=== PATIENT | male | born 1945 | race Caucasian/White ===

== ENCOUNTER → 2017-01-29 | Outpatient (CLI) | payer BC ==
[~2017-01-29] MED LIST: ASPIRIN E.C. 8181 MG PO; ZESTRIL 5MG5 MG PO; ZOCOR 10MG10 MG PO
== END ==
LOC: COL.RAD 08:07
DX: I71.4 Abdominal aortic aneurysm, without rupture (principal); F17.210 Nicotine dependence, cigarettes, uncomplicated

== ENCOUNTER → 2020-08-30 | Outpatient (CLI) | payer MEDICARE, BC ==
[~2020-08-30] MED LIST changes: +FARXIGA5 PO; +LASIX 40MG TABL40 MG PO; +MOVE FREE PLUS1 EACH PO; +TRELEGY ELLIPT1 EACH IH
== END ==
LOC: COL.VAS 13:44
DX: I08.0 Rheumatic disorders of both mitral and aortic valves (principal)

== ENCOUNTER 2020-11-08 12:28 | Day surgery (SDC) | payer MEDICARE, BC ==
[2020-11-08] VITALS (9 sets, daily range): BP systolic 98–116; BP diastolic 68–82; PULSE 70–101; TEMP 98.4
[~2020-11-08] VITALS: Ht 175.3 cm; Wt 102.7 kg
[~2020-11-08 12:28] MED LIST changes: -FARXIGA5 PO; -LASIX 40MG TABL40 MG PO; -MOVE FREE PLUS1 EACH PO; -TRELEGY ELLIPT1 EACH IH
[2020-11-08] MEDS ORDERED: LASIX 40MG TABL40 MG PO (12:43)
[2020-11-08] MEDS ORDERED: MOVE FREE PLUS1 EACH PO (12:44)
[2020-11-08] MEDS ORDERED: TRELEGY ELLIPT1 EACH IH (12:44)
[2020-11-08 13:15] LABS: HEMATOCRIT 51.7 % (42.0-52.0); HEMOGLOBIN 16.3 g/dl (13.5-18.0); MEAN CELL VOLUME 93 fl (80.0-100.0); MEAN CORPUSCULAR HEMOGLOBIN 29 pg (27.0-31.0); MEAN CORPUSCULAR HGB CONC 32 g/dl (33.0-37.0); MEAN PLATELET VOLUME 10.2 fl (7.4-10.4); PLATELET COUNT 159 K/mm3 (130-400); RED BLOOD COUNT 5.55 M/mm3 (4.20-5.60); REDCELL DISTRIBUTION WIDTH-CV 14.5 % (11.5-14.5)
[2020-11-08 13:20] LABS: INR 1.1 (0.8-3.0); PROTHROMBIN TIME 11.8 SECONDS (9.7-12.8)
[2020-11-08 13:22] LABS: PARTIAL THROMBOPLASTIN TIME 33.8 SECONDS (26.0-37.0)
[2020-11-08 13:23] LABS: CALCIUM 9.4 mg/dL (8.4-10.2); CREATININE, serum 0.43 (0.66-1.25); POTASSIUM 4.5 mmol/L (3.4-5.0)
--- NOTE | 2020-11-08 16:05 | NUR ---
SS MERGE DOCUMENTATION FOR MEDICATION ADMINISTRATION TIMES AND INTRA/POST PROCEDURE SEDATION ASSESSMENTS. PLAN FOR RIGHT RADIAL ARTERY AND RIGHT FEMORAL VENOUS ACCESS.
[2020-11-08] MEDS ORDERED: FARXIGA5 PO (16:31)
--- NOTE | 2020-11-08 16:45 | NUR ---
Report from Dru GROVES. Transferred from Medicine Aide by bed. Right Tband with 12 cc air CD&I, good pulses and cap refill < 3 secs. Right groin site CD&I, soft to palpation and good pedal pulses noted. VSS. bedside
--- NOTE | 2020-11-08 18:53 | NUR ---
Right Tband released of 12 cc air and dressing applied. INT discontinued intact. Groin site soft to palpation post ambulation to bathroom.
--- NOTE | 2020-11-08 19:13 | NUR ---
Discharge instructions given.. Transferred to private car by rain
== END 2020-11-08 19:13 | disposition home or self-care (01) ==
LOC: COL.CAR 12:28
PROVIDERS: Internal Medicine Cardiovascular Disease
DX: I42.9 Cardiomyopathy, unspecified (principal); I27.20 Pulmonary hypertension, unspecified; J44.9 Chronic obstructive pulmonary disease, unspecified; I50.9 Heart failure, unspecified; Z79.82 Long term (current) use of aspirin; Z79.899 Other long term (current) drug therapy; F17.210 Nicotine dependence, cigarettes, uncomplicated; Z20.822 Contact with and (suspected) exposure to COVID-19
CPT/HCPCS: C1769; C1894; J1644; J3010; Q9967

== ENCOUNTER → 2021-01-23 | Outpatient (CLI) | payer MEDICARE, BC ==
[~2021-01-23] MED LIST changes: +FARXIGA5 PO; +LASIX 40MG TABL40 MG PO; +MOVE FREE PLUS1 EACH PO; +TRELEGY ELLIPT1 EACH IH
[2021-01-23 08:06] LABS: ARTERIAL BLD GAS O2 SATURATION 94.2 % (92-100); ARTERIAL BLD GAS TCO2 CT 36.4; ARTERIAL BLOOD GAS BASE EXCESS 6.8 (-2-2); ARTERIAL BLOOD GAS HCO3 34.6 meq/L (22-26); ARTERIAL BLOOD GAS PO2 68.1 mmHg (80-100); ARTERIAL BLOOD GAS pH 7.37 (7.35-7.45)
== END ==
LOC: COL.PUL 01-03 13:00
PROVIDERS: Internal Medicine Pulmonary Disease
DX: J44.9 Chronic obstructive pulmonary disease, unspecified (principal)

== ENCOUNTER → 2021-09-25 | Outpatient (CLI) | payer MEDICARE, BC | LOC: COL.RAD 13:30 | DX: Z12.2 Encounter for screening for malignant neoplasm of respiratory organs (principal); F17.210 Nicotine dependence, cigarettes, uncomplicated ==

== ENCOUNTER → 2023-01-29 | Outpatient (RCR) | payer MEDICARE, BC | END | disposition home or self-care (01) | LOC: COL.CR | DX: J44.9 Chronic obstructive pulmonary disease, unspecified (principal) ==

== ENCOUNTER 2023-02-27 13:05 | Outpatient (RCR) | payer MEDICARE, BC | END 2023-02-28 | disposition home or self-care (01) | LOC: COL.CR | DX: J44.9 Chronic obstructive pulmonary disease, unspecified (principal) ==

== ENCOUNTER 2023-03-18 15:50 | Outpatient (RCR) | payer MEDICARE, BC | END 2023-03-31 | disposition home or self-care (01) | LOC: COL.CR | DX: J44.9 Chronic obstructive pulmonary disease, unspecified (principal) ==

== ENCOUNTER → 2023-04-22 | Outpatient (CLI) | payer MEDICARE, BC ==
[2023-04-22 11:24] LABS: ARTERIAL BLD GAS TCO2 CT 42.2; ARTERIAL BLOOD GAS BASE EXCESS 11.2 (-2-2); ARTERIAL BLOOD GAS HCO3 40.1 meq/L (22-26); ARTERIAL BLOOD GAS pH 7.38 (7.35-7.45)
[2023-04-22 11:25] LABS: ARTERIAL BLOOD GAS PCO2 70.1 mmHg (35-45)
== END ==
LOC: COL.CARD 11:06
PROVIDERS: Internal Medicine Pulmonary Disease
DX: J44.9 Chronic obstructive pulmonary disease, unspecified (principal)

== ENCOUNTER → 2023-05-01 | Outpatient (RCR) | payer MEDICARE, BC | END | disposition home or self-care (01) | LOC: COL.CR | DX: J44.9 Chronic obstructive pulmonary disease, unspecified (principal) ==

== ENCOUNTER 2023-05-29 15:42 | Outpatient (RCR) | payer MEDICARE, BC | END 2023-05-30 | disposition home or self-care (01) | LOC: COL.CR | DX: J44.9 Chronic obstructive pulmonary disease, unspecified (principal) ==

== ENCOUNTER 2023-07-08 11:37 | Outpatient (RCR) | payer MEDICARE, BC | END 2023-07-10 13:58 | disposition home or self-care (01) | LOC: COL.CR 11:37 | DX: J44.9 Chronic obstructive pulmonary disease, unspecified (principal) ==

== ENCOUNTER 2023-11-04 11:58 | Inpatient (IN) | payer MEDICARE, BC ==
[~2023-11-04] VITALS: Ht 172.7 cm; Wt 103.6 kg
[~2023-11-04 11:58] MED LIST changes: +LASIX 20MG TABL20 MG PO; -LASIX 40MG TABL40 MG PO
[2023-11-04] MEDS ORDERED: Furosemide 40 MG/4 ML VIAL IV ONE (12:30)
[2023-11-04] MEDS ORDERED: Morphine 4 MG/ML VIAL IV PRN (12:30)
[2023-11-04 12:41] LABS: BASO % 0.5 % (0.0-2.0); GRAN # 6.7 K/mm3 (1.4-6.5); GRAN % 79.9 % (42.2-75.2); HEMATOCRIT 40.9 % (42.0-52.0); HEMOGLOBIN 12.7 g/dl (13.5-18.0); LYMPH # 0.6 K/mm3 (1.2-3.4); LYMPH % 6.8 % (20.0-51.0); MEAN CELL VOLUME 90 fl (80.0-100.0); MEAN CORPUSCULAR HEMOGLOBIN 28 pg (27-31); MEAN CORPUSCULAR HGB CONC 31 g/dl (33.0-37.0); MEAN PLATELET VOLUME 10.3 fl (7.4-10.4); MONO # 1.1 K/mm3 (0.1-0.6); MONO % 12.6 % (1.7-9.3); PLATELET COUNT 168 K/mm3 (130-400); RED BLOOD COUNT 4.56 M/mm3 (4.20-5.60); REDCELL DISTRIBUTION WIDTH-CV 15.4 % (11.5-14.5)
[2023-11-04 12:56] LABS: ALBUMIN 3.7 g/dL (3.4-4.8); BILIRUBIN,TOTAL 1.4 mg/dL (0.2-1.2); CALCIUM 9.5 mg/dL (8.4-10.2); CREATININE, serum 0.64 mg/dL (0.72-1.25); POTASSIUM 4.5 mEq/L (3.5-4.5); TOTAL PROTEIN 6.9 g/dl (6.2-8.1)
[2023-11-04 13:02] LABS: TROPONIN-I 0.028 ng/mL (0.00-0.033)
[2023-11-04] MEDS ORDERED: Albuterol/Ipratropium 3 MG-0.5 MG/3 ML Neb Soln IH ONE (13:30)
[2023-11-04] MEDS ORDERED: methylPREDNISolone Sod Succ 125 MG/2 ML VIAL IV ONE (13:30)
[2023-11-04] MEDS ORDERED: Albuterol/Ipratropium 3 MG-0.5 MG/3 ML Neb Soln IH SCH (15:00)
[2023-11-04] MEDS ORDERED: Doxycycline Hyclate 100 MG in NS 150 ML IV SCH (15:15)
[2023-11-04] MEDS ORDERED: *Potassium Replacement Protocol MC SCH (15:15)
[2023-11-04] MEDS ORDERED: Lisinopril 5 MG TAB PO SCH (15:32)
[2023-11-04] MEDS ORDERED: Empagliflozin 10 MG TAB PO SCH (15:32)
[2023-11-04] MEDS ORDERED: Dextrose (Glucose) 15 GM (4 x 3.75 GM) Chewable TABLET PACK PO PRN (16:00)
[2023-11-04] MEDS ORDERED: Glucagon 1 MG VIAL IM PRN (16:00)
[2023-11-04] MEDS ORDERED: Dextrose 50% Water 25 GM/50 ML SYRINGE IV PRN (16:00)
[2023-11-04 16:19] VITALS: BP 111/72; PULSE 103; TEMP 98.2
[2023-11-04] MEDS ORDERED: LANOXIN 0.25M0.25 MG PO (16:39)
[2023-11-04] MEDS ORDERED: BREZTRI AEROS10.7 GM INH (16:41)
[2023-11-04 17:00] VITALS: BP_SYST 111
[2023-11-04] MEDS ORDERED: Insulin Lispro (HumaLOG) SQ SCH (18:00)
[2023-11-04 19:43] VITALS: BP 113/72; PULSE 102; TEMP 97.4
[2023-11-04 20:30] VITALS: BP_SYST 108
[2023-11-04 23:51] VITALS: BP 108/57; PULSE 96; TEMP 98.1
[2023-11-05] VITALS (12 sets, daily range): BP systolic 87–116; BP diastolic 51–76; PULSE 62–95; TEMP 97.4–98.3
[2023-11-05 06:51] LABS: ALBUMIN 3.4 g/dL (3.4-4.8); CALCIUM 9.3 mg/dL (8.4-10.2); CREATININE, serum 0.68 mg/dL (0.72-1.25); MAGNESIUM 2.1 mg/dL (1.6-2.6); PHOSPHOROUS 3.8 mg/dL (2.3-4.7); POTASSIUM 4.5 mEq/L (3.5-4.5)
[2023-11-05 07:09] LABS: EOS % 0.2 % (0.0-4.0); GRAN # 4.3 K/mm3 (1.4-6.5); GRAN % 79.6 % (42.2-75.2); HEMATOCRIT 39.8 % (42.0-52.0); HEMOGLOBIN 12.6 g/dl (13.5-18.0); LYMPH # 0.4 K/mm3 (1.2-3.4); LYMPH % 7.2 % (20.0-51.0); MEAN CELL VOLUME 87 fl (80.0-100.0); MEAN CORPUSCULAR HEMOGLOBIN 28 pg (27-31); MEAN CORPUSCULAR HGB CONC 32 g/dl (33.0-37.0); MEAN PLATELET VOLUME 10.4 fl (7.4-10.4); MONO # 0.7 K/mm3 (0.1-0.6); MONO % 12.8 % (1.7-9.3); PLATELET COUNT 158 K/mm3 (130-400); RED BLOOD COUNT 4.58 M/mm3 (4.20-5.60); REDCELL DISTRIBUTION WIDTH-CV 15.6 % (11.5-14.5)
[2023-11-05] MEDS ORDERED: FARXIGA10 PO (08:18)
[2023-11-05] MEDS ORDERED: COZAAR 25MG25 MG/TAB PO (08:38)
[2023-11-05] MEDS ORDERED: Furosemide 40 MG TAB PO SCH (09:00)
[2023-11-05] MEDS ORDERED: dexAMETHasone 10 MG/ML VIAL IV SCH (09:00)
[2023-11-05] MEDS ORDERED: Losartan 50 MG TAB PO SCH (09:00)
[2023-11-05] MEDS ORDERED: Budesonide Neb Susp 0.5 MG/2 ML AMP IH SCH (09:37)
[2023-11-05] MEDS ORDERED: Formoterol Neb Soln 20 MCG/2 ML UD IH SCH (09:38)
[2023-11-05] MEDS ORDERED: Digoxin 0.25 MG TAB PO SCH (09:39)
[2023-11-05 10:30] LABS: ARTERIAL BLD GAS O2 SATURATION 91.4 % (92-100); ARTERIAL BLD GAS TCO2 CT 41.7; ARTERIAL BLOOD GAS BASE EXCESS 10.4 (-2-2); ARTERIAL BLOOD GAS HCO3 39.4 meq/L (22-26); ARTERIAL BLOOD GAS PO2 65.2 mmHg (80-100); ARTERIAL BLOOD GAS pH 7.34 (7.35-7.45)
[2023-11-05 10:33] LABS: ARTERIAL BLOOD GAS PCO2 75.4 mmHg (35-45)
[2023-11-05] MEDS ORDERED: DOXYCYCLINE HY100 MG PO (11:23)
[2023-11-05] MEDS ORDERED: PREDNISONE20 MG PO (11:23)
[2023-11-05] MEDS ORDERED: Albuterol/Ipratropium 3 MG-0.5 MG/3 ML Neb Soln IH SCH (14:00)
[2023-11-05] MEDS ORDERED: Atorvastatin 10 MG TAB PO SCH (21:00)
[2023-11-06 01:07] VITALS: BP_SYST 104
[2023-11-06 03:22] VITALS: BP 114/60; PULSE 93; TEMP 97.5
[2023-11-06 03:55] VITALS: BP 114/60; PULSE 93; TEMP 97.5
[2023-11-06 04:41] VITALS: BP_SYST 114
[2023-11-06 05:26] LABS: ARTERIAL BLD GAS O2 SATURATION 97.6 % (92-100); ARTERIAL BLD GAS TCO2 CT 46.6; ARTERIAL BLOOD GAS BASE EXCESS 14.2 (-2-2); ARTERIAL BLOOD GAS PO2 100.3 mmHg (80-100); ARTERIAL BLOOD GAS pH 7.33 (7.35-7.45)
[2023-11-06 05:27] LABS: ARTERIAL BLOOD GAS PCO2 85.2 mmHg (35-45)
[2023-11-06 06:06] LABS: BASO % 0.3 % (0.0-2.0); EOS # 0.1 K/mm3 (0.0-0.7); EOS % 0.8 % (0.0-4.0); GRAN # 5.8 K/mm3 (1.4-6.5); GRAN % 74.2 % (42.2-75.2); HEMATOCRIT 39.9 % (42.0-52.0); HEMOGLOBIN 12.2 g/dl (13.5-18.0); LYMPH # 0.7 K/mm3 (1.2-3.4); LYMPH % 9.3 % (20.0-51.0); MEAN CELL VOLUME 89 fl (80.0-100.0); MEAN CORPUSCULAR HEMOGLOBIN 27 pg (27-31); MEAN CORPUSCULAR HGB CONC 31 g/dl (33.0-37.0); MEAN PLATELET VOLUME 10.4 fl (7.4-10.4); MONO # 1.2 K/mm3 (0.1-0.6); MONO % 15.1 % (1.7-9.3); PLATELET COUNT 163 K/mm3 (130-400); RED BLOOD COUNT 4.47 M/mm3 (4.20-5.60); REDCELL DISTRIBUTION WIDTH-CV 15.8 % (11.5-14.5)
[2023-11-06 06:19] LABS: ALBUMIN 3.3 g/dL (3.4-4.8); CREATININE, serum 0.57 mg/dL (0.72-1.25); MAGNESIUM 1.9 mg/dL (1.6-2.6); PHOSPHOROUS 2.8 mg/dL (2.3-4.7); POTASSIUM 4.6 mEq/L (3.5-4.5)
[2023-11-06 08:00] VITALS: BP 98/60; PULSE 91; TEMP 97.5
[2023-11-06 09:00] VITALS: BP_SYST 98
== END 2023-11-06 11:18 | disposition home health service (06) | DRG 291 ==
LOC: COL.ER 11:58 → MEDICAL 13:30
PROVIDERS: Personal Emergency Response Attendant; Physician Assistant; ADMIT Internal Medicine
DX: I11.0 Hypertensive heart disease with heart failure (principal); I50.23 Acute on chronic systolic (congestive) heart failure; J96.21 Acute and chronic respiratory failure with hypoxia; J44.1 Chronic obstructive pulmonary disease with (acute) exacerbation; J96.12 Chronic respiratory failure with hypercapnia; I10 Essential (primary) hypertension; E78.5 Hyperlipidemia, unspecified
CPT/HCPCS: A9270; J1100; J1650; J1940; J2919

== ENCOUNTER 2024-01-29 14:10 | Outpatient (RCR) | payer MEDICARE, BC ==
[~2024-01-29 14:10] MED LIST changes: +BREZTRI AEROS10.7 GM INH; +COZAAR 25MG25 MG/TAB PO; +DOXYCYCLINE HY100 MG PO; +FARXIGA10 PO; +LANOXIN 0.25M0.25 MG PO; +PREDNISONE20 MG PO
== END 2024-01-30 | disposition home or self-care (01) ==
LOC: COL.CR
DX: Z02.89 Encounter for other administrative examinations (principal)